=== PATIENT | male | born 1965 | race Caucasian/White ===

== ENCOUNTER 2017-09-14 11:31 | Emergency (ER) | payer SELFPAY ==
[2017-09-14] MEDS ORDERED: Ketorolac Tromethamine 60 MG/2 ML VIAL ONE (12:06)
--- NOTE | 2017-09-14 12:51 | RAD ---
LEFT FOREARM 2 VIEWS: HISTORY: Left wrist and hand pain. COMPARISON: Radiographs of the left wrist 07/06/17. FINDINGS/IMPRESSION: Satisfactory appearance of the plate and screw fixation of the distal radius fracture. There is per iarticular osteopenia. POS: [facility]
--- NOTE | 2017-09-14 13:10 | RAD ---
No dictation POS: [facility]
== END 2017-09-14 13:40 | disposition home or self-care (01) ==
LOC: SCSER 11:31
DX: G89.18 Other acute postprocedural pain (principal); M79.642 Pain in left hand; F17.210 Nicotine dependence, cigarettes, uncomplicated
CPT/HCPCS: 96372; J1885

== ENCOUNTER 2017-10-29 14:24 | Outpatient (CLI) | payer OTHER | END 2017-10-29 14:25 | disposition home or self-care (01) | LOC: BICRAD 14:24 | PROVIDERS: ATTEND Internal Medicine | DX: M75.100 Unspecified rotator cuff tear or rupture of unspecified shoulder, not specified as traumatic (principal); M47.816 Spondylosis without myelopathy or radiculopathy, lumbar region; S52.502D Unspecified fracture of the lower end of left radius, subsequent encounter for closed fracture with routine healing; Z98.890 Other specified postprocedural states | CPT/HCPCS: 72100 ==

== ENCOUNTER 2018-07-24 18:50 | Emergency (ER) | payer OTHER ==
[2018-07-24] MEDS ORDERED: Dexamethasone 10 MG/ML VIAL ONE (19:25)
[2018-07-24] MEDS ORDERED: Ketorolac Tromethamine 60 MG/2 ML VIAL ONE (19:25)
== END 2018-07-24 19:54 | disposition home or self-care (01) ==
LOC: SCSER 18:50
DX: M54.10 Radiculopathy, site unspecified (principal); F17.210 Nicotine dependence, cigarettes, uncomplicated
CPT/HCPCS: 96372; J1100; J1885

== ENCOUNTER 2019-11-10 10:32 | Emergency (ER) | payer OTHER ==
[2019-11-10] MEDS ORDERED: Adacel (T-DAP) 0.5 ML SYRINGE ONE (13:03)
== END 2019-11-10 13:35 | disposition home or self-care (01) ==
LOC: ERS 10:32
DX: S01.01XA Laceration without foreign body of scalp, initial encounter (principal); F17.210 Nicotine dependence, cigarettes, uncomplicated; Z23 Encounter for immunization; W26.8XXA Contact with other sharp object(s), not elsewhere classified, initial encounter
CPT/HCPCS: 12002; 90471; 90715